=== PATIENT | male | born 1935 | race Caucasian/White ===

== ENCOUNTER 2016-08-09 19:28 | Inpatient (IN) | payer MEDICARE, OTHER ==
[~2016-08-09] VITALS: Ht 172.7 cm; Wt 82.1 kg
[2016-08-09] MEDS ORDERED: DOCU100C36 PO (19:52)
[2016-08-09] MEDS ORDERED: CLOM50CA4 PO (19:52)
[2016-08-09] MEDS ORDERED: BISA10SU12 RC (19:52)
[2016-08-09] MEDS ORDERED: CHOL100062 PO (19:52)
[2016-08-09] MEDS ORDERED: METF850T2 PO (19:52)
[2016-08-09] MEDS ORDERED: ATOR20TA PO (19:52)
[2016-08-09] MEDS ORDERED: ACET325T53 PO (19:52)
[2016-08-09] MEDS ORDERED: NA P133E RC (19:52)
[2016-08-09] MEDS ORDERED: MAGN400O6 PO (19:52)
--- NOTE | 2016-08-09 20:02 | NUR ---
Patient BIB private ambulance from [facility] for Medical Clearance and GPS admission. Patient arrives on 5150 hold. Per hold, patient has been exhibiting unpredictable and erratic behaviour such as hoarding dangerous items (a stick), patient has been having mood swings and is paranoid. Per hold, DPA states patient is "way off" from baseline behaviour. A/O x3, ambulatory, calm and cooperative. Patient to room 3A.
[2016-08-09 20:08] LABS: BASOPHILS # (AUTO) 0.1 K/uL (0.0-8.0); BASOPHILS % (AUTO) 0.7 % (0.0-2.0); EOSINOPHILS # (AUTO) 0.3 K/uL (0.0-0.7); EOSINOPHILS % (AUTO) 2.4 % (0.0-7.0); HEMOGLOBIN 11.1 G/DL (14.0-18.0); LYMPHOCYTES # (AUTO) 1.3 K/UL (0.8-4.8); LYMPHOCYTES % (AUTO) 12.1 % (20.5-51.5); MEAN CORPUSCULAR HEMOGLOBIN 28.4 UUG (27.0-31.0); MEAN CORPUSCULAR HGB CONC 33 g/dL (32.0-37.0); MEAN CORPUSCULAR VOLUME 87.3 FL (82.0-92.0); MONOCYTES # (AUTO) 0.9 K/UL (0.1-1.30); MONOCYTES % (AUTO) 8.6 % (0.0-11.0); NEUTROPHILS # (AUTO) 8.1 K/UL (1.8-8.9); NEUTROPHILS % (AUTO) 76.2 % (38.5-71.5); PLATELET COUNT (AUTO) 307 K/UL (150-450); WHITE BLOOD COUNT (AUTO) 10.7 K/UL (4.0-11.2)
[2016-08-09 20:17] LABS: CARBON DIOXIDE 29 mmol/L (21-32); CHLORIDE 101 mmol/L (98-107); GLUCOSE 113 mg/dL (74-106); POTASSIUM 3.9 mmol/L (3.5-5.1); UREA NITROGEN, BLOOD 15 mg/dL (7-18)
[2016-08-09 20:20] LABS: ETHANOL < 3 MG/DL (0-0)
[2016-08-09 20:21] LABS: *BILIRUBIN,URIN NEGATIVE (NEGATIVE); *BLOOD, URINE NEGATIVE (NEGATIVE); *CLARITY,URINE CLEAR (CLEAR); *COLOR,URINE YELLOW (YELLOW); *KETONES,URINE NEGATIVE (NEGATIVE); *PROTEIN,URINE NEGATIVE (NEGATIVE); *UROBILINOGEN,URINE 0.2 E.U./dl (NORMAL); LEUKOCYTE ESTERASE ,URINE NEGATIVE (NEGATIVE); NITRITE, URINE NEGATIVE (NEGATIVE); PH,URINE 5.5 (5.0-8.0); UGLUCOSE NEGATIVE (NEGATIVE)
[2016-08-09 20:26] LABS: RBC,URINE NONE SEEN /HPF (0-3)
[2016-08-09 20:27] LABS: BACTERIA,URINE FEW /HPF (NONE SEEN); SQUAMOUS EPITHELIAL CELL,UR NONE SEEN /HPF (NONE SEEN); WBC,URINE 0-3 /HPF (0-3)
[2016-08-09 20:33] LABS: *AMPHETAMINE, URINE NEGATIVE (NEGATIVE); *BARBITURATE, URINE NEGATIVE (NEGATIVE); *CANNABINOID, URINE NEGATIVE (NEGATIVE); *COCCAINE, URINE NEGATIVE (NEGATIVE); *OPIATE, URINE NEGATIVE (NEGATIVE); *PHENCYCLIDINE SCREEN,URINE NEGATIVE (NEGATIVE)
[2016-08-09 20:34] LABS: ALANINE AMINOTRANSFERASE 28 U/L (16-63); ALKALINE PHOSPHATASE 77 U/L (50-136); ASPARTATE AMINOTRANSFERASE 31 U/L (15-37); BILIRUBIN,DIRECT 0.1 mg/dL (0.0-0.2); BILIRUBIN,TOTAL 0.3 mg/dL (0.2-1.0); TOTAL PROTEIN, SERUM 7.2 g/dL (6.4-8.2)
[2016-08-09 20:37] LABS: ACETAMINOPHEN < 2.0 ug/mL (10-30)
[2016-08-09 20:58] LABS: THYROID STIMULATING HORMONE 1.362 mIU/mL (0.358-3.740)
--- NOTE | 2016-08-09 21:01 | NUR ---
Pt. admitted to GPS, under care of Dr. Gar Belongs List completed
[2016-08-09] MEDS ORDERED: TEMAZEPAM 7.5 MG CAPSULE PO PRN (22:45)
[2016-08-09] MEDS ORDERED: MAG HYDROX/AL HYDROX/SIMETH 30 ML LIQUID UDC PO PRN (22:45)
[2016-08-09] MEDS ORDERED: ACETAMINOPHEN 325 MG TABLET PO PRN (22:45)
[2016-08-09] MEDS ORDERED: MAGNESIUM HYDROXIDE 30 ML LIQUID UDC PO PRN (22:45)
[2016-08-09] MEDS ORDERED: LORAZEPAM 0.5 MG TABLET PO PRN (22:45)
--- NOTE | 2016-08-09 23:16 | NUR ---
Nurses notes:GPS at approx 2100, Obtained report from GELACIO Hidalgo from ER, patient will be here in MHU 10 minutes.
--- NOTE | 2016-08-09 23:19 | NUR ---
Nurses notes:GPS at approx 2125 patient was admitted to [facility]. Patient arrived via wheelchair and accompanied by ER nurse. Patient was calm and in stable condition at time of admission. Patient is on a 5150 hold d/t GD starting on 08/09/16 at 1745 and ending on 08/12/16 at 1745. Patient denied having unpredictable bx. and mood swings. MD and Psych doctors were notified of admission. we will start to monitor.
[2016-08-10 01:22] VITALS: BP 102/65
[2016-08-10 07:30] VITALS: BP 111/67
[2016-08-10] MEDS: QUETIAPINE FUMARATE 25 MG TABLET PO SCH ×2 (11:37→16:13)
--- NOTE | 2016-08-10 14:12 | NUR ---
Initial discharge instructions: The patient reside at [facility] ([facility]) [[address], [place] [address] ]. CECILY has called the facility and left a voicemail for Arlen in admissions asking if patient may return to the facility upon discharge. CECILY spoke with the patient's friend/DPOA (awaiting paperwork) who stated that he would like for the patient to return to the facility upon discharge. CECILY will speak with the patient, friend, and MD regarding most appropriate discharge plan. SS will form a safe and proper discharge.
[2016-08-10] MEDS ORDERED: FLEET ENEMA 133 ML BOTTLE RC PRN (15:15)
[2016-08-10] MEDS ORDERED: BISACODYL 10 MG SUPP.RECT RC PRN (15:15)
[2016-08-10 15:55] VITALS: BP 100/76
[2016-08-10] MEDS: DOCUSATE SODIUM 100 MG CAPSULE PO SCH (16:13)
[2016-08-10] MEDS: METFORMIN HCL 850 MG TABLET PO SCH (17:30)
[2016-08-10] MEDS: ATORVASTATIN 20 MG TABLET PO SCH (20:19)
[2016-08-10] MEDS ORDERED: CLOMIPRAMINE HCL 50 MG PO SCH (21:00)
[2016-08-10 21:10] VITALS: BP 109/61
--- NOTE | 2016-08-11 06:37 | NUR ---
NSG: REMAIN CALM AND COOPERATIVE WITH MEDS AND CARE. ASSISTED TO USE BATH ROOM. SLEPT 05:30 HRS THROUGH THE NIGHT. PLACED ON CONTACT ISOLATION FOR POSSIBLE SCABIES.CONTINUE MONITORING FOR SAFETY. DUE TO PATIENT HAS UNSTEADY GAIT.
[2016-08-11 07:30] VITALS: BP 110/59
[2016-08-11] MEDS: DOCUSATE SODIUM 100 MG CAPSULE PO SCH ×2 (08:38→17:38)
[2016-08-11] MEDS: METFORMIN HCL 850 MG TABLET PO SCH ×2 (08:38→17:45)
[2016-08-11] MEDS: QUETIAPINE FUMARATE 25 MG TABLET PO SCH ×2 (08:38→17:38)
[2016-08-11] MEDS: CHOLECALCIFEROL 1,000 UNIT TABLET PO SCH (08:38)
[2016-08-11 16:00] VITALS: BP 112/62
[2016-08-11] MEDS ORDERED: PERMETHRIN 5% CREAM 60 GM TUBE TP ONE (16:15)
[2016-08-11] MEDS: ATORVASTATIN 20 MG TABLET PO SCH (20:10)
[2016-08-11 21:32] VITALS: BP 118/66
--- NOTE | 2016-08-12 06:39 | NUR ---
GPS: REMAIN CALM AND COOPERATIVE WITH CARE. SLEPT 7 HRS THROUGH THE NIGHT.
[2016-08-12 07:30] VITALS: BP 122/52
[2016-08-12] MEDS: QUETIAPINE FUMARATE 25 MG TABLET PO SCH ×2 (08:06→16:04)
[2016-08-12] MEDS: CHOLECALCIFEROL 1,000 UNIT TABLET PO SCH (08:06)
[2016-08-12] MEDS: METFORMIN HCL 850 MG TABLET PO SCH ×2 (08:06→17:00)
[2016-08-12] MEDS: DOCUSATE SODIUM 100 MG CAPSULE PO SCH ×2 (08:06→16:04)
[2016-08-12 16:00] VITALS: BP 110/63
[2016-08-12] MEDS: ATORVASTATIN 20 MG TABLET PO SCH (20:18)
[2016-08-12 20:42] VITALS: BP 117/60
[2016-08-13 07:30] VITALS: BP 113/53
[2016-08-13] MEDS: CHOLECALCIFEROL 1,000 UNIT TABLET PO SCH (08:06)
[2016-08-13] MEDS: METFORMIN HCL 850 MG TABLET PO SCH ×2 (08:06→17:16)
[2016-08-13] MEDS: DOCUSATE SODIUM 100 MG CAPSULE PO SCH ×2 (08:06→16:17)
[2016-08-13] MEDS: QUETIAPINE FUMARATE 25 MG TABLET PO SCH ×2 (08:06→16:17)
[2016-08-13 15:26] VITALS: BP 108/61
[2016-08-13] MEDS: ATORVASTATIN 20 MG TABLET PO SCH (20:06)
[2016-08-13 20:12] VITALS: BP 117/67
--- NOTE | 2016-08-13 20:31 | NUR ---
pt received in his room sitting up, busy writing and coloring, alert, denies pain/si/hi, no distress noted, will continue to monitor closely.
[2016-08-14 07:30] VITALS: BP 119/64
[2016-08-14] MEDS: QUETIAPINE FUMARATE 25 MG TABLET PO SCH ×3 (08:21→17:40)
[2016-08-14] MEDS: CHOLECALCIFEROL 1,000 UNIT TABLET PO SCH (08:21)
[2016-08-14] MEDS: METFORMIN HCL 850 MG TABLET PO SCH ×2 (08:21→17:40)
[2016-08-14] MEDS: DOCUSATE SODIUM 100 MG CAPSULE PO SCH ×2 (08:21→17:40)
[2016-08-14 15:40] VITALS: BP 92/55
[2016-08-14 20:00] VITALS: BP 104/61
[2016-08-14] MEDS: ATORVASTATIN 20 MG TABLET PO SCH (20:16)
[2016-08-15 07:30] VITALS: BP 93/54
[2016-08-15] MEDS ORDERED: METFORMIN HCL 850 MG TABLET PO SCH (08:00)
[2016-08-15] MEDS: DOCUSATE SODIUM 100 MG CAPSULE PO SCH ×2 (09:29→18:01)
[2016-08-15] MEDS: QUETIAPINE FUMARATE 25 MG TABLET PO SCH ×3 (09:30→18:01)
[2016-08-15] MEDS: CHOLECALCIFEROL 1,000 UNIT TABLET PO SCH (09:30)
[2016-08-15] MEDS: METFORMIN HCL 500 MG TABLET PO SCH ×2 (09:31→18:01)
[2016-08-15 16:00] VITALS: BP 110/63
[2016-08-15] MEDS: ATORVASTATIN 10 MG TABLET PO SCH (20:44)
[2016-08-15 20:45] VITALS: BP 114/68
[2016-08-15] MEDS ORDERED: ATORVASTATIN 20 MG TABLET PO SCH (21:00)
--- NOTE | 2016-08-15 21:35 | NUR ---
PATIENT RECEIVED SITTING UP IN BED DRAWING. PATIENT REMAINS ON ISOLATION PRECAUTIONS DUE TO (+) SCABIES. PATIENT AWARE OF ISOLATION PRECAUTIONS IS COMPLAINT WITH TREATMENT AND REMAINS IN ROOM. PATIENT COMPLAINT WITH MEDICATION. PATIENT DENIES SI, WILL CONTINUE TO MONITOR. PATIENT ENCOURAGED TO EXPRESS FEELINGS AND CONCERNS. PATIENT IN NO APPARENT DISTRESS. NO AGGRESSIVE OR COMBATIVE BEHAVIOR NOTED WILL CONTINUE TO MONITOR. PATIENT DENIES PAIN AT THIS TIME, WILL CONTINUE TO MONITOR.
[2016-08-16 07:28] LABS: BASOPHILS # (AUTO) 0.1 K/uL (0.0-8.0); BASOPHILS % (AUTO) 1.2 % (0.0-2.0); EOSINOPHILS # (AUTO) 0.3 K/uL (0.0-0.7); EOSINOPHILS % (AUTO) 4.8 % (0.0-7.0); HEMOGLOBIN 11.2 G/DL (14.0-18.0); LYMPHOCYTES # (AUTO) 1.4 K/UL (0.8-4.8); LYMPHOCYTES % (AUTO) 20.2 % (20.5-51.5); MEAN CORPUSCULAR HGB CONC 33 g/dL (32.0-37.0); MEAN CORPUSCULAR VOLUME 87.6 FL (82.0-92.0); MONOCYTES # (AUTO) 0.8 K/UL (0.1-1.30); MONOCYTES % (AUTO) 10.9 % (0.0-11.0); NEUTROPHILS # (AUTO) 4.3 K/UL (1.8-8.9); NEUTROPHILS % (AUTO) 62.9 % (38.5-71.5); PLATELET COUNT (AUTO) 289 K/UL (150-450); RED BLOOD CELL COUNT(AUTO) 3.88 MIL/UL (4.7-6.1); WHITE BLOOD COUNT (AUTO) 6.9 K/UL (4.0-11.2)
[2016-08-16 07:30] VITALS: BP 118/67
[2016-08-16 07:46] LABS: ALANINE AMINOTRANSFERASE 19 U/L (16-63); ALKALINE PHOSPHATASE 74 U/L (50-136); ASPARTATE AMINOTRANSFERASE 17 U/L (15-37); BILIRUBIN,TOTAL 0.2 mg/dL (0.2-1.0); CARBON DIOXIDE 29 mmol/L (21-32); CHLORIDE 103 mmol/L (98-107); CREATININE 0.8 mg/dL (0.6-1.3); GLUCOSE 92 mg/dL (74-106); MAGNESIUM 1.3 mg/dL (1.8-2.4); PHOSPHOROUS 3.8 mg/dL (2.5-4.9); POTASSIUM 4.6 mmol/L (3.5-5.1); TOTAL PROTEIN, SERUM 6.7 g/dL (6.4-8.2); UREA NITROGEN, BLOOD 26 mg/dL (7-18)
[2016-08-16] MEDS: CHOLECALCIFEROL 1,000 UNIT TABLET PO SCH (08:19)
[2016-08-16] MEDS: QUETIAPINE FUMARATE 25 MG TABLET PO SCH ×2 (08:19→17:56)
[2016-08-16] MEDS: METFORMIN HCL 500 MG TABLET PO SCH ×2 (08:19→17:53)
[2016-08-16] MEDS: DOCUSATE SODIUM 100 MG CAPSULE PO SCH ×2 (08:19→17:57)
[2016-08-16 08:32] LABS: URIC ACID 5.5 mg/dL (3.5-7.2)
[2016-08-16] MEDS ORDERED: MAGNESIUM OXIDE 400 MG TABLET PO ONE (10:45)
[2016-08-16 16:03] VITALS: BP 100/60
[2016-08-16 19:30] VITALS: BP 117/67
[2016-08-16] MEDS: ATORVASTATIN 10 MG TABLET PO SCH (20:36)
[2016-08-17] MEDS: BLOOD SUGAR DIAGNOSTIC 1 EACH STRIP VI SCH (06:21)
--- NOTE | 2016-08-17 06:26 | NUR ---
NSG: REMAIN CALM AND COOPERATIVE WITH MEDS AND CARE. ASSISTED TO USE BATH ROOM. SLEPT 06:30 HRS THROUGH THE NIGHT. PATIENT IS ON CONTACT ISOLATION FOR SCABIES.CONTINUE MONITORING FOR SAFETY.
[2016-08-17 07:30] VITALS: BP_SYST 11; BP_SYST 111; BP_DIAS 70
[2016-08-17] MEDS: CHOLECALCIFEROL 1,000 UNIT TABLET PO SCH (08:27)
[2016-08-17] MEDS: METFORMIN HCL 500 MG TABLET PO SCH ×2 (08:27→17:41)
[2016-08-17] MEDS: QUETIAPINE FUMARATE 25 MG TABLET PO SCH ×3 (08:27→17:41)
[2016-08-17] MEDS: DOCUSATE SODIUM 100 MG CAPSULE PO SCH ×2 (08:27→17:41)
[2016-08-17 17:00] VITALS: BP 93/58
[2016-08-17 19:49] VITALS: BP 94/53
[2016-08-17] MEDS: ATORVASTATIN 10 MG TABLET PO SCH (20:08)
[2016-08-18] MEDS: BLOOD SUGAR DIAGNOSTIC 1 EACH STRIP VI SCH (06:49)
--- NOTE | 2016-08-18 06:52 | NUR ---
patient remain in his room during the shift. continue on isolation d/t scabies. Slept through the night for approx. 6.5hrs. patient able to used the toilet with the aid of a walker. Continue compliant with medication regiment and plan of care. No noted or reported behavioral problems during the shift. pt. remains calm and cooperative during the shift
[2016-08-18 07:47] VITALS: BP 105/58
[2016-08-18] MEDS: QUETIAPINE FUMARATE 25 MG TABLET PO SCH ×3 (08:23→18:17)
[2016-08-18] MEDS: METFORMIN HCL 500 MG TABLET PO SCH ×2 (08:23→18:18)
[2016-08-18] MEDS: DOCUSATE SODIUM 100 MG CAPSULE PO SCH ×2 (08:23→18:17)
[2016-08-18] MEDS: CHOLECALCIFEROL 1,000 UNIT TABLET PO SCH (08:23)
[2016-08-18] MEDS ORDERED: PERMETHRIN 5% CREAM 60 GM TUBE TP ONE ×2 (09:00→21:00)
[2016-08-18 20:03] VITALS: BP 105/65
[2016-08-18] MEDS: ATORVASTATIN 10 MG TABLET PO SCH (20:15)
[2016-08-19] MEDS: BLOOD SUGAR DIAGNOSTIC 1 EACH STRIP VI SCH (06:40)
--- NOTE | 2016-08-19 07:13 | NUR ---
patient slept for about 6 hrs through the night. his is calm and cooperative. compliant with medication and plan of care. Second topical treatment for scabies was applied last night. He will shower today. He will continue on isolation precautions. Pt is A/O x 3 with no changes in LOC. No delusion or AH/VH noted during the shift; however, he continues hoarding papers, cup, verbal redirection given, yet ineffective. we will continue to monitor.
[2016-08-19 07:30] VITALS: BP 100/58
[2016-08-19 08:07] LABS: BASOPHILS # (AUTO) 0.1 K/uL (0.0-8.0); EOSINOPHILS # (AUTO) 0.3 K/uL (0.0-0.7); EOSINOPHILS % (AUTO) 3.9 % (0.0-7.0); HEMATOCRIT 36.1 % (40-50); HEMOGLOBIN 11.9 G/DL (14.0-18.0); LYMPHOCYTES # (AUTO) 1.3 K/UL (0.8-4.8); LYMPHOCYTES % (AUTO) 18.5 % (20.5-51.5); MEAN CORPUSCULAR HGB CONC 33 g/dL (32.0-37.0); MEAN CORPUSCULAR VOLUME 87.8 FL (82.0-92.0); MONOCYTES # (AUTO) 0.6 K/UL (0.1-1.30); MONOCYTES % (AUTO) 7.8 % (0.0-11.0); NEUTROPHILS % (AUTO) 68.8 % (38.5-71.5); PLATELET COUNT (AUTO) 328 K/UL (150-450); RED BLOOD CELL COUNT(AUTO) 4.11 MIL/UL (4.7-6.1); WHITE BLOOD COUNT (AUTO) 7.3 K/UL (4.0-11.2)
[2016-08-19] MEDS: METFORMIN HCL 500 MG TABLET PO SCH ×2 (08:19→17:21)
[2016-08-19] MEDS: DOCUSATE SODIUM 100 MG CAPSULE PO SCH ×2 (08:21→17:21)
[2016-08-19] MEDS: CHOLECALCIFEROL 1,000 UNIT TABLET PO SCH (08:21)
[2016-08-19] MEDS: QUETIAPINE FUMARATE 25 MG TABLET PO SCH ×3 (08:22→17:22)
[2016-08-19 08:29] LABS: ALANINE AMINOTRANSFERASE 22 U/L (16-63); ALKALINE PHOSPHATASE 83 U/L (50-136); ASPARTATE AMINOTRANSFERASE 16 U/L (15-37); BILIRUBIN,TOTAL 0.2 mg/dL (0.2-1.0); CARBON DIOXIDE 29 mmol/L (21-32); CHLORIDE 104 mmol/L (98-107); CREATININE 0.9 mg/dL (0.6-1.3); GLUCOSE 127 mg/dL (74-106); MAGNESIUM 1.4 mg/dL (1.8-2.4); PHOSPHOROUS 4.2 mg/dL (2.5-4.9); POTASSIUM 4.4 mmol/L (3.5-5.1); TOTAL PROTEIN, SERUM 7.2 g/dL (6.4-8.2); UREA NITROGEN, BLOOD 23 mg/dL (7-18)
[2016-08-19] MEDS ORDERED: MAGNESIUM OXIDE 400 MG TABLET PO ONE (09:15)
[2016-08-19 15:39] VITALS: BP 99/64
[2016-08-19 20:00] VITALS: BP 118/65
[2016-08-19] MEDS: ATORVASTATIN 10 MG TABLET PO SCH (20:02)
--- NOTE | 2016-08-20 03:36 | NUR ---
PATIENT IN HIS ROOM. CONTINUE ON ISOLATION CONTACT PRECAUTION R/T SCABIES. PATIENT IS COMPLIANT WITH MEDICATION REGIMENT, DIET AND PLAN OF CARE. HE IS CALM AND COOPERATIVE. NO BEHAVIOR PROBLEMS NOTED OR REPORTED DURING THE SHIFT. NO SI/HI, NO AH/VH NOTED; HOWEVER, PATIENT CONTINUE HOARDING PAPER TOWELS, AND CUPS IN HIS ROOM. PATIENT IS EASILY REDIRECTABLE. HE IS A/O X 3 WITH NO CHANGES IN LOC. ABLE TO MAKE HIS NEEDS KNOW. WE WILL CONTINUE TO MONITOR
[2016-08-20] MEDS: BLOOD SUGAR DIAGNOSTIC 1 EACH STRIP VI SCH (06:26)
[2016-08-20 07:30] VITALS: BP 112/64
[2016-08-20] MEDS: QUETIAPINE FUMARATE 25 MG TABLET PO SCH ×3 (08:15→17:25)
[2016-08-20] MEDS: DOCUSATE SODIUM 100 MG CAPSULE PO SCH ×2 (08:15→17:25)
[2016-08-20] MEDS: CHOLECALCIFEROL 1,000 UNIT TABLET PO SCH (08:15)
[2016-08-20] MEDS: METFORMIN HCL 500 MG TABLET PO SCH ×2 (08:15→17:25)
[2016-08-20 16:44] VITALS: BP 106/52
[2016-08-20 20:46] VITALS: BP 101/59
[2016-08-20] MEDS: ATORVASTATIN 10 MG TABLET PO SCH (20:57)
--- NOTE | 2016-08-20 22:00 | NUR ---
received to care, no longer on isolation. remain pleasant, but isolative. no interactions with peers, but is able to verbalize all needs. compliant with medications, and staff direction. fluids and bedtime snack were given. as of 2200, he appears to be asleep. no distress noted. will continue to monitor closely.
--- NOTE | 2016-08-21 06:15 | NUR ---
slept 8 hours, total. is now awake. assisted with AM care, and shower. currently sitting at his bedside. no distress noted. will continue to monitor closely.
[2016-08-21] MEDS: BLOOD SUGAR DIAGNOSTIC 1 EACH STRIP VI SCH (06:23)
[2016-08-21 07:48] VITALS: BP 108/66
[2016-08-21] MEDS: QUETIAPINE FUMARATE 25 MG TABLET PO SCH (08:14)
[2016-08-21] MEDS: METFORMIN HCL 500 MG TABLET PO SCH (08:14)
[2016-08-21] MEDS: DOCUSATE SODIUM 100 MG CAPSULE PO SCH (08:14)
[2016-08-21] MEDS: CHOLECALCIFEROL 1,000 UNIT TABLET PO SCH (08:14)
--- NOTE | 2016-08-21 08:59 | NUR ---
DC Note: The patient will be discharged today back to [facility] ([facility]) [[address], [place] [address] ] via ambulance. CECILY spoke with TUCKER Tariq at the facility who stated that they will accept the patient back today. CECILY spoke with the patient's friend/DPTAMARA Tani Rose and he is aware and agreeable with the discharge plan. The patient will follow-up at the facility with operator Dr. Lott and psychiatrist Dr. Pantjoa.
--- NOTE | 2016-08-21 11:30 | NUR ---
GPS/RN- DISCHARGE NOTE Patient is alert and oriented to person place and situation,compliant with care and meds,redirected on hoarding. patient calm and pleasant, no agitated behavior, no delusions no hallucinations, remains guarded and anxious, redirectable. denies any SI/HI The patient will be discharged today back to [facility] ([facility]) [[address] , [place] [address] ] via ambulance. The patient will follow-up at the facility with shed workers supervisor Dr. Lott and psychiatrist Dr. Pantoja. Belongings returned and accounted for.
== END 2016-08-21 12:00 | DRG 885 ==
LOC: ER 19:32 → GPS 20:58
PROVIDERS: ADMIT Psychiatry & Neurology Psychosomatic Medicine; ATTEND Contractor
DX: F25.1 Schizoaffective disorder, depressive type (principal); E11.65 Type 2 diabetes mellitus with hyperglycemia; E78.5 Hyperlipidemia, unspecified; F03.90 Unspecified dementia, unspecified severity, without behavioral disturbance, psychotic disturbance, mood disturbance, and anxiety; B86 Scabies; D64.9 Anemia, unspecified; E88.09 Other disorders of plasma-protein metabolism, not elsewhere classified; M19.042 Primary osteoarthritis, left hand; E83.42 Hypomagnesemia; Z79.899 Other long term (current) drug therapy; Z79.4 Long term (current) use of insulin; I70.0 Atherosclerosis of aorta; F41.9 Anxiety disorder, unspecified
CPT/HCPCS: 36415; 70030-TC; 70450; 71010; 73120; 80307; 83605; 83735; 84100; 84443; 84550; 85025; 85730; 87040; 87086; 93005; 97161; A4663; G0480; G0480-TC

== ENCOUNTER 2018-01-06 12:38 | Inpatient (IN) | payer MEDICARE, OTHER ==
[~2018-01-06] VITALS: Ht 160 cm; Wt 82.6 kg
[~2018-01-06 12:38] MED LIST: ACET325T53 PO; ATOR20TA PO; BISA10SU12 RC; CHOL100062 PO; DOCU100C36 PO; MAGN400O6 PO; METF-441 PO; NA P133E RC
[2018-01-06] MEDS ORDERED: predniSONE 20 MG TABLET PO ONE (13:15)
[2018-01-06] MEDS ORDERED: ACET325C3 PO (13:24)
[2018-01-06] MEDS ORDERED: BISA10SU61 RC (13:24)
[2018-01-06] MEDS ORDERED: CHOL100062 PO (13:24)
[2018-01-06] MEDS ORDERED: BENA5TAB5 PO (13:24)
[2018-01-06] MEDS ORDERED: MAG355OR18 PO (13:24)
[2018-01-06] MEDS ORDERED: ATOR10TA PO (13:24)
[2018-01-06] MEDS ORDERED: QUET25TA PO (13:24)
[2018-01-06] MEDS ORDERED: SENN-18 PO (13:24)
[2018-01-06] MEDS ORDERED: QUET50TA PO (13:24)
[2018-01-06] MEDS ORDERED: RANI150T43 PO (13:24)
[2018-01-06] MEDS ORDERED: MAGN400O6 PO (13:24)
[2018-01-06] MEDS ORDERED: ACET325T53 PO (13:24)
[2018-01-06] MEDS ORDERED: METF-440 PO (13:24)
[2018-01-06] MEDS ORDERED: CRAN425C6 PO (13:24)
[2018-01-06] MEDS ORDERED: NA P133E RC (13:24)
[2018-01-06 13:43] LABS: CARBON DIOXIDE 28 mmol/L (21-32); CHLORIDE 102 mmol/L (98-107); CREATININE 0.8 mg/dL (0.6-1.3); GLUCOSE 116 mg/dL (74-106); UREA NITROGEN, BLOOD 15 mg/dL (7-18)
[2018-01-06 13:48] LABS: BASOPHILS # (AUTO) 0.1 K/uL (0.0-8.0); BASOPHILS % (AUTO) 1.2 % (0.0-2.0); EOSINOPHILS # (AUTO) 0.1 K/uL (0.0-0.7); EOSINOPHILS % (AUTO) 1.6 % (0.0-7.0); HEMATOCRIT 37.6 % (36.7-47.1); HEMOGLOBIN 12.9 g/dL (12.5-16.3); LYMPHOCYTES # (AUTO) 1.1 K/uL (20.0-40.0); LYMPHOCYTES % (AUTO) 14.8 % (20.5-51.5); MEAN CORPUSCULAR HEMOGLOBIN 31.4 uug (23.8-33.4); MEAN CORPUSCULAR HGB CONC 34 g/dL (32.5-36.3); MEAN CORPUSCULAR VOLUME 91.6 fL (73.0-96.2); MONOCYTES # (AUTO) 0.5 K/uL (2.0-10.0); MONOCYTES % (AUTO) 6.6 % (0.0-11.0); NEUTROPHILS # (AUTO) 5.7 K/uL (1.8-8.9); NEUTROPHILS % (AUTO) 75.8 % (38.5-71.5); PLATELET COUNT (AUTO) 278 K/uL (152-348); WHITE BLOOD COUNT (AUTO) 7.5 K/uL (3.6-10.2)
[2018-01-06 13:49] LABS: ALANINE AMINOTRANSFERASE 26 U/L (16-63); ALKALINE PHOSPHATASE 116 U/L (50-136); ASPARTATE AMINOTRANSFERASE 20 U/L (15-37); BILIRUBIN,DIRECT 0.1 mg/dL (0.0-0.2); BILIRUBIN,TOTAL 0.4 mg/dL (0.2-1.0); TOTAL PROTEIN, SERUM 7.5 g/dL (6.4-8.2)
[2018-01-06 13:51] LABS: ACETAMINOPHEN < 2.0 ug/mL (10-30); ETHANOL < 3 MG/DL (0-0)
[2018-01-06] MEDS ORDERED: MAGNESIUM HYDROXIDE 30 ML LIQUID UDC PO PRN (15:30)
[2018-01-06] MEDS ORDERED: ACETAMINOPHEN 325 MG TABLET PO PRN ×2 (15:30→17:30)
[2018-01-06] MEDS ORDERED: MAG HYDROX/AL HYDROX/SIMETH 30 ML LIQUID UDC PO PRN (15:30)
[2018-01-06] MEDS ORDERED: LORAZEPAM 0.5 MG TABLET PO PRN (16:00)
[2018-01-06 19:52] VITALS: BP 111/55
[2018-01-06] MEDS: ATORVASTATIN 10 MG TABLET PO SCH (20:07)
[2018-01-06] MEDS: DIVALPROEX 250 MG TABLET.DR PO SCH (20:07)
[2018-01-06] MEDS: QUETIAPINE FUMARATE 25 MG TABLET PO SCH (20:07)
[2018-01-06] MEDS ORDERED: TEMAZEPAM 7.5 MG CAPSULE PO SCH (21:00)
[2018-01-06] MEDS ORDERED: TEMAZEPAM 7.5 MG CAPSULE PO PRN (21:00)
[2018-01-06] MEDS: BENAZEPRIL HCL 5 MG TABLET PO SCH (21:00)
[2018-01-07 07:30] VITALS: BP 117/66
[2018-01-07] MEDS: METFORMIN HCL 500 MG TABLET PO SCH ×3 (08:02→17:04)
[2018-01-07] MEDS: DIVALPROEX 250 MG TABLET.DR PO SCH ×2 (08:27→16:38)
[2018-01-07] MEDS: QUETIAPINE FUMARATE 25 MG TABLET PO SCH ×2 (08:27→21:12)
[2018-01-07] MEDS: DOCUSATE SODIUM 100 MG CAPSULE PO SCH ×2 (08:33→16:38)
[2018-01-07 16:41] VITALS: BP 124/62
[2018-01-07 20:09] VITALS: BP 123/69
[2018-01-07] MEDS: BENAZEPRIL HCL 5 MG TABLET PO SCH (21:12)
[2018-01-07] MEDS: ATORVASTATIN 10 MG TABLET PO SCH (21:12)
[2018-01-08 07:30] VITALS: BP 113/67
[2018-01-08] MEDS: DIVALPROEX 250 MG TABLET.DR PO SCH ×2 (08:14→16:26)
[2018-01-08] MEDS: METFORMIN HCL 500 MG TABLET PO SCH ×3 (08:14→17:04)
[2018-01-08] MEDS: QUETIAPINE FUMARATE 25 MG TABLET PO SCH ×2 (08:14→20:06)
[2018-01-08] MEDS: DOCUSATE SODIUM 100 MG CAPSULE PO SCH ×2 (08:14→16:26)
[2018-01-08 16:10] VITALS: BP 104/64
[2018-01-08 19:55] VITALS: BP 115/62
[2018-01-08] MEDS: ATORVASTATIN 10 MG TABLET PO SCH (20:06)
[2018-01-08] MEDS: BENAZEPRIL HCL 5 MG TABLET PO SCH (20:07)
[2018-01-09 07:30] VITALS: BP 117/63
[2018-01-09] MEDS: METFORMIN HCL 500 MG TABLET PO SCH ×3 (08:05→17:22)
[2018-01-09] MEDS: DOCUSATE SODIUM 100 MG CAPSULE PO SCH ×2 (08:06→17:22)
[2018-01-09] MEDS: QUETIAPINE FUMARATE 25 MG TABLET PO SCH ×2 (08:06→20:17)
[2018-01-09] MEDS: DIVALPROEX 250 MG TABLET.DR PO SCH ×2 (08:06→17:22)
[2018-01-09 16:00] VITALS: BP 122/80
[2018-01-09] MEDS: ATORVASTATIN 10 MG TABLET PO SCH (20:16)
[2018-01-09] MEDS: BENAZEPRIL HCL 5 MG TABLET PO SCH (20:17)
[2018-01-09 20:30] VITALS: BP 133/73
[2018-01-10 07:30] VITALS: BP 137/62
[2018-01-10] MEDS: DIVALPROEX 250 MG TABLET.DR PO SCH ×2 (08:26→17:34)
[2018-01-10] MEDS: QUETIAPINE FUMARATE 25 MG TABLET PO SCH ×2 (08:26→17:34)
[2018-01-10] MEDS: DOCUSATE SODIUM 100 MG CAPSULE PO SCH ×2 (08:26→17:34)
[2018-01-10] MEDS: METFORMIN HCL 500 MG TABLET PO SCH ×3 (08:26→17:34)
[2018-01-10 16:00] VITALS: BP 113/63
[2018-01-10] MEDS: ATORVASTATIN 10 MG TABLET PO SCH (20:24)
[2018-01-10] MEDS: BENAZEPRIL HCL 5 MG TABLET PO SCH (20:25)
[2018-01-10 20:28] VITALS: BP 114/63
[2018-01-11 07:30] VITALS: BP 129/68
[2018-01-11] MEDS: DOCUSATE SODIUM 100 MG CAPSULE PO SCH ×2 (08:35→16:30)
[2018-01-11] MEDS: DIVALPROEX 250 MG TABLET.DR PO SCH ×2 (08:35→16:30)
[2018-01-11] MEDS: QUETIAPINE FUMARATE 25 MG TABLET PO SCH ×2 (08:35→16:31)
[2018-01-11] MEDS: METFORMIN HCL 500 MG TABLET PO SCH ×3 (08:35→17:05)
[2018-01-11 16:15] VITALS: BP 132/64
[2018-01-11 20:15] VITALS: BP 116/69
[2018-01-11] MEDS: ATORVASTATIN 10 MG TABLET PO SCH (20:51)
[2018-01-11] MEDS: BENAZEPRIL HCL 5 MG TABLET PO SCH (20:52)
[2018-01-12 07:30] VITALS: BP 139/67
[2018-01-12] MEDS: DIVALPROEX 250 MG TABLET.DR PO SCH ×2 (08:35→17:27)
[2018-01-12] MEDS: DOCUSATE SODIUM 100 MG CAPSULE PO SCH ×2 (08:35→17:26)
[2018-01-12] MEDS: METFORMIN HCL 500 MG TABLET PO SCH ×3 (08:35→17:27)
[2018-01-12] MEDS: QUETIAPINE FUMARATE 25 MG TABLET PO SCH ×2 (08:35→17:27)
[2018-01-12 16:00] VITALS: BP 114/55
[2018-01-12 20:00] VITALS: BP 123/61
[2018-01-12] MEDS: ATORVASTATIN 10 MG TABLET PO SCH (20:10)
[2018-01-12] MEDS: BENAZEPRIL HCL 5 MG TABLET PO SCH (20:10)
[2018-01-13 07:30] VITALS: BP 115/65
[2018-01-13 08:03] LABS: BASOPHILS # (AUTO) 0.1 K/uL (0.0-8.0); EOSINOPHILS # (AUTO) 0.2 K/uL (0.0-0.7); EOSINOPHILS % (AUTO) 2.7 % (0.0-7.0); HEMATOCRIT 34.7 % (36.7-47.1); LYMPHOCYTES # (AUTO) 1.8 K/uL (20.0-40.0); LYMPHOCYTES % (AUTO) 22.5 % (20.5-51.5); MEAN CORPUSCULAR HEMOGLOBIN 31.8 uug (23.8-33.4); MEAN CORPUSCULAR HGB CONC 35 g/dL (32.5-36.3); MEAN CORPUSCULAR VOLUME 91.7 fL (73.0-96.2); MONOCYTES # (AUTO) 0.6 K/uL (2.0-10.0); MONOCYTES % (AUTO) 7.9 % (0.0-11.0); NEUTROPHILS # (AUTO) 5.2 K/uL (1.8-8.9); NEUTROPHILS % (AUTO) 65.9 % (38.5-71.5); PLATELET COUNT (AUTO) 275 K/uL (152-348); RED BLOOD CELL COUNT(AUTO) 3.79 MIL/uL (4.06-5.63); WHITE BLOOD COUNT (AUTO) 7.9 K/uL (3.6-10.2)
[2018-01-13] MEDS: DIVALPROEX 250 MG TABLET.DR PO SCH ×2 (08:11→16:37)
[2018-01-13] MEDS: DOCUSATE SODIUM 100 MG CAPSULE PO SCH ×2 (08:11→16:37)
[2018-01-13] MEDS: QUETIAPINE FUMARATE 25 MG TABLET PO SCH ×2 (08:11→16:37)
[2018-01-13] MEDS: METFORMIN HCL 500 MG TABLET PO SCH ×3 (08:11→17:23)
[2018-01-13 08:20] LABS: CARBON DIOXIDE 30 mmol/L (21-32); CHLORIDE 105 mmol/L (98-107); CREATININE 0.7 mg/dL (0.6-1.3); GLUCOSE 89 mg/dL (74-106); MAGNESIUM 1.4 mg/dL (1.8-2.4); PHOSPHOROUS 2.7 mg/dL (2.5-4.9); UREA NITROGEN, BLOOD 19 mg/dL (7-18)
[2018-01-13] MEDS ORDERED: MAGNESIUM OXIDE 400 MG TABLET PO ONE ×2 (14:00→16:45)
[2018-01-13 15:04] VITALS: BP 130/67
[2018-01-13] MEDS: BENAZEPRIL HCL 5 MG TABLET PO SCH (20:19)
[2018-01-13] MEDS: ATORVASTATIN 10 MG TABLET PO SCH (20:19)
[2018-01-13 20:44] VITALS: BP 105/55
[2018-01-14 07:30] VITALS: BP 119/69
[2018-01-14] MEDS: DOCUSATE SODIUM 100 MG CAPSULE PO SCH ×2 (08:21→17:10)
[2018-01-14] MEDS: METFORMIN HCL 500 MG TABLET PO SCH ×3 (08:21→17:10)
[2018-01-14] MEDS: QUETIAPINE FUMARATE 25 MG TABLET PO SCH ×2 (08:21→17:10)
[2018-01-14] MEDS: DIVALPROEX 250 MG TABLET.DR PO SCH ×2 (08:21→17:09)
[2018-01-14 16:00] VITALS: BP 121/72
[2018-01-14 17:58] LABS: *BILIRUBIN,URIN NEGATIVE (NEGATIVE); *BLOOD, URINE NEGATIVE (NEGATIVE); *CLARITY,URINE CLEAR (CLEAR); *COLOR,URINE YELLOW (YELLOW); *KETONES,URINE 1+ (NEGATIVE); *PROTEIN,URINE NEGATIVE (NEGATIVE); LEUKOCYTE ESTERASE ,URINE NEGATIVE (NEGATIVE); NITRITE, URINE NEGATIVE (NEGATIVE); UGLUCOSE NEGATIVE (NEGATIVE)
[2018-01-14 18:02] LABS: *AMPHETAMINE, URINE NEGATIVE (NEGATIVE); *BARBITURATE, URINE NEGATIVE (NEGATIVE); *CANNABINOID, URINE NEGATIVE (NEGATIVE); *COCCAINE, URINE NEGATIVE (NEGATIVE); *OPIATE, URINE NEGATIVE (NEGATIVE); *PHENCYCLIDINE SCREEN,URINE NEGATIVE (NEGATIVE)
[2018-01-14 18:44] LABS: MUCUS,URINE FEW /LPF (0-FEW); SQUAMOUS EPITHELIAL CELL,UR FEW /HPF (NONE SEEN); WBC,URINE NONE SEEN /HPF (0-3)
[2018-01-14 20:00] VITALS: BP 103/56
[2018-01-14] MEDS: ATORVASTATIN 10 MG TABLET PO SCH (20:02)
[2018-01-14] MEDS: BENAZEPRIL HCL 5 MG TABLET PO SCH (20:04)
[2018-01-15 07:30] VITALS: BP_SYST 122; BP_SYST 123; BP_DIAS 48; BP_DIAS 74
[2018-01-15] MEDS: DOCUSATE SODIUM 100 MG CAPSULE PO SCH (08:37)
[2018-01-15] MEDS: DIVALPROEX 250 MG TABLET.DR PO SCH (08:37)
[2018-01-15] MEDS: METFORMIN HCL 500 MG TABLET PO SCH (08:37)
[2018-01-15] MEDS: QUETIAPINE FUMARATE 25 MG TABLET PO SCH (08:37)
== END 2018-01-15 12:10 | DRG 885 ==
LOC: ER 12:38 → GPS 14:34
PROVIDERS: ADMIT Psychiatry & Neurology Psychiatry; ATTEND Internal Medicine
DX: F29 Unspecified psychosis not due to a substance or known physiological condition (principal); E78.5 Hyperlipidemia, unspecified; E11.9 Type 2 diabetes mellitus without complications; F41.9 Anxiety disorder, unspecified; E66.9 Obesity, unspecified; E83.42 Hypomagnesemia; I10 Essential (primary) hypertension; D64.9 Anemia, unspecified; Z79.899 Other long term (current) drug therapy; Z79.84 Long term (current) use of oral hypoglycemic drugs; Z68.33 Body mass index [BMI] 33.0-33.9, adult; Z71.3 Dietary counseling and surveillance; F03.90 Unspecified dementia, unspecified severity, without behavioral disturbance, psychotic disturbance, mood disturbance, and anxiety; F32.9 Major depressive disorder, single episode, unspecified
CPT/HCPCS: 36415; 80307; 83735; 84100; 85025; 97116; 97530; A4663; G0480; G0480-TC; J3490

== ENCOUNTER 2018-06-14 22:42 | Inpatient (IN) | payer MEDICARE, MEDICAID ==
[~2018-06-14] VITALS: Ht 172.7 cm; Wt 77.1 kg
[~2018-06-14 22:42] MED LIST changes: +ACET325C3 PO; +ATOR10TA PO; -ATOR20TA PO; +BENA5TAB5 PO; -BISA10SU12 RC; +BISA10SU61 RC; +CRAN425C6 PO; +MAG355OR18 PO; +METF-440 PO; -METF-441 PO; +QUET25TA PO; +QUET50TA PO; +RANI150T43 PO; +SENN-18 PO
--- NOTE | 2018-06-14 22:51 | NUR ---
Called [employer] for sitter, no sitter available at this time.
--- NOTE | 2018-06-14 22:55 | NUR ---
Dr. Hoover at bedside for MSE.
--- NOTE | 2018-06-14 22:59 | NUR ---
Xray at bedside.
[2018-06-14 23:20] LABS: BASOPHILS # (AUTO) 0.1 K/uL (0.0-8.0); BASOPHILS % (AUTO) 1.1 % (0.0-2.0); EOSINOPHILS # (AUTO) 0.3 K/uL (0.0-0.7); EOSINOPHILS % (AUTO) 4.5 % (0.0-7.0); HEMOGLOBIN 12.6 g/dL (12.5-16.3); LYMPHOCYTES # (AUTO) 2.1 K/uL (20.0-40.0); LYMPHOCYTES % (AUTO) 31.4 % (20.5-51.5); MEAN CORPUSCULAR HEMOGLOBIN 31.5 uug (23.8-33.4); MEAN CORPUSCULAR HGB CONC 34 g/dL (32.5-36.3); MEAN CORPUSCULAR VOLUME 92.3 fL (73.0-96.2); MONOCYTES # (AUTO) 0.6 K/uL (2.0-10.0); MONOCYTES % (AUTO) 8.4 % (0.0-11.0); NEUTROPHILS # (AUTO) 3.7 K/uL (1.8-8.9); NEUTROPHILS % (AUTO) 54.6 % (38.5-71.5); PLATELET COUNT (AUTO) 286 K/uL (152-348); RED BLOOD CELL COUNT(AUTO) 4.01 MIL/uL (4.06-5.63); WHITE BLOOD COUNT (AUTO) 6.8 K/uL (3.6-10.2)
[2018-06-14 23:30] LABS: CARBON DIOXIDE 30 mmol/L (21-32); CHLORIDE 104 mmol/L (98-107); CREATININE 0.7 mg/dL (0.6-1.3); GLUCOSE 80 mg/dL (74-106); POTASSIUM 4.2 mmol/L (3.5-5.1); UREA NITROGEN, BLOOD 6 mg/dL (7-18)
--- NOTE | 2018-06-14 23:32 | NUR ---
Pt provided urine sample, sent to lab.
[2018-06-14 23:34] LABS: ETHANOL < 3 MG/DL (0-0)
[2018-06-14 23:38] LABS: *BILIRUBIN,URIN NEGATIVE (NEGATIVE); *BLOOD, URINE NEGATIVE (NEGATIVE); *CLARITY,URINE CLEAR (CLEAR); *COLOR,URINE YELLOW (YELLOW); *KETONES,URINE NEGATIVE (NEGATIVE); *UROBILINOGEN,URINE 0.2 E.U./dl (NORMAL); LEUKOCYTE ESTERASE ,URINE NEGATIVE (NEGATIVE); NITRITE, URINE NEGATIVE (NEGATIVE); PH,URINE 6.5 (5.0-8.0); UGLUCOSE NEGATIVE (NEGATIVE)
[2018-06-14 23:38] LABS: ALANINE AMINOTRANSFERASE 25 U/L (16-63); ALKALINE PHOSPHATASE 88 U/L (50-136); ASPARTATE AMINOTRANSFERASE 17 U/L (15-37); BILIRUBIN,DIRECT 0.1 mg/dL (0.0-0.2); BILIRUBIN,TOTAL 0.4 mg/dL (0.2-1.0); TOTAL PROTEIN, SERUM 7.2 g/dL (6.4-8.2); VALPROIC ACID 48 ug/mL (50-100)
[2018-06-14 23:44] LABS: THYROID STIMULATING HORMONE 2.686 mIU/mL (0.358-3.740)
[2018-06-14 23:44] LABS: BACTERIA,URINE NONE SEEN /HPF (NONE SEEN); RBC,URINE 0-3 /HPF (0-3); SQUAMOUS EPITHELIAL CELL,UR FEW /HPF (NONE SEEN); WBC,URINE 0-3 /HPF (0-3)
--- NOTE | 2018-06-14 23:52 | NUR ---
Pt wanded by security and searched for contraband.
[2018-06-14 23:54] LABS: *AMPHETAMINE, URINE NEGATIVE (NEGATIVE); *BARBITURATE, URINE NEGATIVE (NEGATIVE); *CANNABINOID, URINE NEGATIVE (NEGATIVE); *COCCAINE, URINE NEGATIVE (NEGATIVE); *OPIATE, URINE NEGATIVE (NEGATIVE); *PHENCYCLIDINE SCREEN,URINE NEGATIVE (NEGATIVE)
--- NOTE | 2018-06-15 00:05 | NUR ---
Pt medically cleared by Dr. Hoover.
--- NOTE | 2018-06-15 00:12 | NUR ---
Report given to Vida BRIZUELA MHU.
[2018-06-15 00:30] VITALS: BP 147/80
[2018-06-15] MEDS ORDERED: MAG HYDROX/AL HYDROX/SIMETH 30 ML LIQUID UDC PO PRN ×2 (00:45→07:15)
[2018-06-15] MEDS ORDERED: TEMAZEPAM 7.5 MG CAPSULE PO PRN (00:45)
[2018-06-15] MEDS ORDERED: LORAZEPAM 0.5 MG TABLET PO PRN (00:45)
[2018-06-15] MEDS ORDERED: ACETAMINOPHEN 325 MG TABLET PO PRN ×2 (00:45→07:15)
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
[2018-06-15] MEDS ORDERED: MAGNESIUM HYDROXIDE 30 ML LIQUID UDC PO PRN (07:15)
[2018-06-15] MEDS ORDERED: BISACODYL 10 MG SUPP.RECT RC PRN (07:15)
[2018-06-15] MEDS ORDERED: FLEET ENEMA 133 ML BOTTLE RC PRN (07:15)
[2018-06-15 07:30] VITALS: BP 134/66
[2018-06-15] MEDS: SENNOSIDES 1 TABLET PO SCH (08:36)
[2018-06-15] MEDS: DOCUSATE SODIUM 100 MG CAPSULE PO SCH ×2 (08:37→16:59)
[2018-06-15] MEDS: CHOLECALCIFEROL 1,000 UNIT TABLET PO SCH (08:37)
[2018-06-15] MEDS: METFORMIN HCL 500 MG TABLET PO SCH ×3 (08:37→16:59)
[2018-06-15 16:00] VITALS: BP 121/64
[2018-06-15] MEDS: DIVALPROEX SPRINKLE 125 MG CAP.SPRINK PO SCH (17:00)
[2018-06-15 20:09] VITALS: BP 135/71
[2018-06-15] MEDS: BENAZEPRIL HCL 5 MG TABLET PO SCH (20:25)
[2018-06-15] MEDS: ATORVASTATIN 10 MG TABLET PO SCH (20:26)
[2018-06-15] MEDS ORDERED: QUETIAPINE FUMARATE 25 MG TABLET PO SCH (21:00)
[2018-06-16] MEDS: PANTOPRAZOLE SODIUM 40 MG TABLET.DR PO SCH (06:22)
[2018-06-16 07:30] VITALS: BP 116/59
[2018-06-16] MEDS: METFORMIN HCL 500 MG TABLET PO SCH ×3 (08:54→16:27)
[2018-06-16] MEDS: DIVALPROEX SPRINKLE 125 MG CAP.SPRINK PO SCH ×2 (08:54→16:27)
[2018-06-16] MEDS: CHOLECALCIFEROL 1,000 UNIT TABLET PO SCH (08:54)
[2018-06-16] MEDS: SENNOSIDES 1 TABLET PO SCH (08:54)
[2018-06-16] MEDS: DOCUSATE SODIUM 100 MG CAPSULE PO SCH ×2 (08:54→16:27)
[2018-06-16] MEDS ORDERED: QUETIAPINE FUMARATE 25 MG TABLET PO SCH (09:00)
--- NOTE | 2018-06-16 14:56 | NUR ---
Initial Discharge Note: Pt is a 82 year old male who currently is a resident at [facility] Address: [address] [place] [address] . Per pt he would like to return to his facility. production staff worker spoke with pt JOAQUIN, joaquin agrees if pt is requesting to return to facility he is agreeable with that. Pts JOAQUIN stated if possible to d/c pt to [facility] it would be better due to distance from his home, however if pt does not want [facility] and chooses [place] JOAQUIN is agreeable to that placement as well. production staff worker will continue to collaborate with pt, JOAQUIN and on a safe and proper discharge.
--- NOTE | 2018-06-16 16:29 | NUR ---
Firearms Report: CECILY completed and submitted [employer] Firearms Report for 5150 DTO/GD certifications.
[2018-06-16 16:38] VITALS: BP 115/58
--- NOTE | 2018-06-16 17:58 | NUR ---
PATIENT RECEIVED ON BED, DENIES PAIN,NO SOB, PATIENT COMPLIANT WITH MEDICATION, DENIES SI AND HI WILL CONTINUE MONITOR
[2018-06-16 20:06] VITALS: BP 122/71
[2018-06-16] MEDS: QUETIAPINE FUMARATE 25 MG TABLET PO SCH (20:18)
[2018-06-16] MEDS: BENAZEPRIL HCL 5 MG TABLET PO SCH (20:18)
[2018-06-16] MEDS: ATORVASTATIN 10 MG TABLET PO SCH (20:18)
[2018-06-17] MEDS: PANTOPRAZOLE SODIUM 40 MG TABLET.DR PO SCH (06:10)
[2018-06-17 07:39] VITALS: BP 92/53
[2018-06-17] MEDS: METFORMIN HCL 500 MG TABLET PO SCH ×3 (07:53→16:02)
[2018-06-17] MEDS: DIVALPROEX SPRINKLE 125 MG CAP.SPRINK PO SCH ×2 (08:00→16:02)
[2018-06-17] MEDS: CHOLECALCIFEROL 1,000 UNIT TABLET PO SCH (08:00)
[2018-06-17] MEDS: QUETIAPINE FUMARATE 25 MG TABLET PO SCH ×2 (08:00→20:05)
[2018-06-17] MEDS: DOCUSATE SODIUM 100 MG CAPSULE PO SCH ×2 (08:00→16:02)
[2018-06-17] MEDS: SENNOSIDES 1 TABLET PO SCH (08:00)
--- NOTE | 2018-06-17 16:16 | NUR ---
GPS: RECEIVED PATIENT AWAKE ON BED, COMPLIANT WITH DIET AND MEDICATION, REMAINS ISOLATIVE AND STAYS IN HIS ROOM, SEEN AND EXAMINED BY REHAB WITH GAIT AND THERA EX ORDER DONE, PATIENT KEPT BUSY WITH MATHEMATIC EQUATIONS , PATIENT DENIES SI AND HI AT THIS TIME,FALL PRECAUTION OBSERVED THROUGH OUT THE SHIFT, WILL CONTINUE MONITOR
[2018-06-17 16:51] VITALS: BP 114/63
[2018-06-17 20:00] VITALS: BP 117/63
[2018-06-17] MEDS: BENAZEPRIL HCL 5 MG TABLET PO SCH (20:05)
[2018-06-17] MEDS: ATORVASTATIN 10 MG TABLET PO SCH (20:06)
[2018-06-18] MEDS: PANTOPRAZOLE SODIUM 40 MG TABLET.DR PO SCH (06:17)
[2018-06-18 07:30] VITALS: BP 112/63
[2018-06-18] MEDS: METFORMIN HCL 500 MG TABLET PO SCH ×3 (07:45→16:32)
[2018-06-18] MEDS: DOCUSATE SODIUM 100 MG CAPSULE PO SCH ×2 (08:00→16:33)
[2018-06-18] MEDS: QUETIAPINE FUMARATE 25 MG TABLET PO SCH ×2 (08:00→20:07)
[2018-06-18] MEDS: CHOLECALCIFEROL 1,000 UNIT TABLET PO SCH (08:00)
[2018-06-18] MEDS: SENNOSIDES 1 TABLET PO SCH (08:00)
[2018-06-18] MEDS: DIVALPROEX SPRINKLE 125 MG CAP.SPRINK PO SCH ×2 (08:00→16:33)
--- NOTE | 2018-06-18 14:33 | NUR ---
WOUND CARE CONSULT: PT PRESENTS WITH RT BUTTOCK INCONTINENCE ASSOCIATED SKIN DAMAGE. RECOMMENDATIONS MADE FOR SKIN CARE AND PROTECTION. DISCUSSED WITH NURSING STAFF. WILL SEE PRN. GARCIA IN AGREEMENT WITH PLAN OF CARE. Addendum: 06/18/18 at 1434 by LUIS ANTONIO VASQUEZ RN Amended: Links added.
[2018-06-18 16:00] VITALS: BP 110/54
--- NOTE | 2018-06-18 17:31 | NUR ---
GPS: RECEIVED PATIENT AOX3-4, REMAINS ISOLATIVE AND WITHDRAWN, PATIENT DENIES PAIN COMPLIANT WITH MEDICATION, PATIENT FIXATED ON MAKING EQUATION , SEEN BY THE WOUND NURSE WITH ORDERS MADE , PATIENT TRANSFERRED TO ROOM 137A, WILL CONTINUE MONITOR
[2018-06-18 20:00] VITALS: BP 113/56
[2018-06-18] MEDS: ATORVASTATIN 10 MG TABLET PO SCH (20:07)
[2018-06-18] MEDS: BENAZEPRIL HCL 5 MG TABLET PO SCH (20:07)
--- NOTE | 2018-06-18 23:21 | NUR ---
received to care, lying in bed, isolative, but pleasant upon approach. compliant with medications, snacks, and staff direction. as of 2200, he appears to be asleep. no dsitress noted. will continue to monitor closely.
[2018-06-19] MEDS: PANTOPRAZOLE SODIUM 40 MG TABLET.DR PO SCH (06:59)
--- NOTE | 2018-06-19 07:00 | NUR ---
slept 7 hours
[2018-06-19 07:30] VITALS: BP 93/56
[2018-06-19] MEDS: CHOLECALCIFEROL 1,000 UNIT TABLET PO SCH (09:00)
[2018-06-19] MEDS: QUETIAPINE FUMARATE 25 MG TABLET PO SCH ×2 (09:00→21:14)
[2018-06-19] MEDS: METFORMIN HCL 500 MG TABLET PO SCH ×3 (09:00→17:47)
[2018-06-19] MEDS: SENNOSIDES 1 TABLET PO SCH (09:00)
[2018-06-19] MEDS: DIVALPROEX SPRINKLE 125 MG CAP.SPRINK PO SCH ×2 (09:00→17:47)
[2018-06-19] MEDS: DOCUSATE SODIUM 100 MG CAPSULE PO SCH ×2 (09:00→17:47)
[2018-06-19 16:01] VITALS: BP 115/59
[2018-06-19 20:00] VITALS: BP 114/60
[2018-06-19] MEDS: ATORVASTATIN 10 MG TABLET PO SCH (21:14)
[2018-06-19] MEDS: BENAZEPRIL HCL 5 MG TABLET PO SCH (21:15)
[2018-06-20] MEDS: PANTOPRAZOLE SODIUM 40 MG TABLET.DR PO SCH (06:22)
--- NOTE | 2018-06-20 06:45 | NUR ---
pt slept 7.5 hours, total. assisted with am care, and shower. curently sitting up inbed, drawing pictures. no distress noted.
[2018-06-20 07:30] VITALS: BP 116/58
[2018-06-20] MEDS: DIVALPROEX SPRINKLE 125 MG CAP.SPRINK PO SCH ×2 (08:39→16:52)
[2018-06-20] MEDS: DOCUSATE SODIUM 100 MG CAPSULE PO SCH ×2 (08:39→16:52)
[2018-06-20] MEDS: CHOLECALCIFEROL 1,000 UNIT TABLET PO SCH (08:39)
[2018-06-20] MEDS: METFORMIN HCL 500 MG TABLET PO SCH ×3 (08:39→16:52)
[2018-06-20] MEDS: QUETIAPINE FUMARATE 25 MG TABLET PO SCH ×2 (08:40→20:56)
[2018-06-20] MEDS: SENNOSIDES 1 TABLET PO SCH (08:40)
[2018-06-20 16:00] VITALS: BP 115/53
[2018-06-20 20:18] VITALS: BP 127/61
[2018-06-20] MEDS: ATORVASTATIN 10 MG TABLET PO SCH (20:56)
[2018-06-20] MEDS: BENAZEPRIL HCL 5 MG TABLET PO SCH (20:56)
--- NOTE | 2018-06-20 22:00 | NUR ---
received to care, lying in bed, isolative, but pleasant upon approach. compliant with medications, snacks, and staff direction. as of 2200, he appears to be asleep. no distress noted. will continue to monitor closely.
--- NOTE | 2018-06-21 06:00 | NUR ---
slept 5 hours
[2018-06-21 07:30] VITALS: BP 103/50
[2018-06-21] MEDS: CHOLECALCIFEROL 1,000 UNIT TABLET PO SCH (08:38)
[2018-06-21] MEDS: QUETIAPINE FUMARATE 25 MG TABLET PO SCH ×2 (08:39→20:53)
[2018-06-21] MEDS: METFORMIN HCL 500 MG TABLET PO SCH ×3 (08:39→16:54)
[2018-06-21] MEDS: SENNOSIDES 1 TABLET PO SCH (08:39)
[2018-06-21] MEDS: PANTOPRAZOLE SODIUM 40 MG TABLET.DR PO SCH (08:39)
[2018-06-21] MEDS: DOCUSATE SODIUM 100 MG CAPSULE PO SCH ×2 (08:39→16:54)
[2018-06-21] MEDS: DIVALPROEX SPRINKLE 125 MG CAP.SPRINK PO SCH ×2 (08:39→16:54)
[2018-06-21 15:56] VITALS: BP 119/60
[2018-06-21] MEDS: MAGNESIUM HYDROXIDE 30 ML LIQUID UDC PO PRN (16:36)
--- NOTE | 2018-06-21 16:55 | NUR ---
Gps/Tool And Die Maker/Designer- Coplained of being constipated, inspite of routine stool softener ans senokot w/c was administered routinely as ordered, fluids offered encouraged, claimed he is not drinking enough water/liquids. MOM 30 ml was administered, with 120 ml of warm prune juice. Bowel program.
[2018-06-21] MEDS: Z GUARD REMEDY PASTE 57 GM TUBE TOP PRN (17:57)
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
[2018-06-21 20:47] VITALS: BP 116/61
[2018-06-21] MEDS: ATORVASTATIN 10 MG TABLET PO SCH (20:51)
[2018-06-21] MEDS: BENAZEPRIL HCL 5 MG TABLET PO SCH (21:00)
[2018-06-22] MEDS: PANTOPRAZOLE SODIUM 40 MG TABLET.DR PO SCH (06:42)
[2018-06-22 07:30] VITALS: BP 93/51
[2018-06-22] MEDS: DIVALPROEX SPRINKLE 125 MG CAP.SPRINK PO SCH ×2 (09:22→17:14)
[2018-06-22] MEDS: CHOLECALCIFEROL 1,000 UNIT TABLET PO SCH (09:22)
[2018-06-22] MEDS: METFORMIN HCL 500 MG TABLET PO SCH ×3 (09:23→17:14)
[2018-06-22] MEDS: DOCUSATE SODIUM 100 MG CAPSULE PO SCH ×2 (09:23→17:14)
[2018-06-22] MEDS: QUETIAPINE FUMARATE 25 MG TABLET PO SCH ×2 (09:23→20:35)
[2018-06-22] MEDS: SENNOSIDES 1 TABLET PO SCH (09:24)
[2018-06-22 16:00] VITALS: BP 109/55
--- NOTE | 2018-06-22 18:23 | NUR ---
patient has been visible on unit up in wheelchair with minimum assist c/o constipation, medicated with routine meds one prn mom 30cc for help with stool continue to monitor bowel movement
[2018-06-22] MEDS: MAGNESIUM HYDROXIDE 30 ML LIQUID UDC PO PRN (18:47)
[2018-06-22 20:26] VITALS: BP 141/73
[2018-06-22] MEDS: ATORVASTATIN 10 MG TABLET PO SCH (20:33)
[2018-06-22] MEDS: BENAZEPRIL HCL 5 MG TABLET PO SCH (20:35)
[2018-06-23] MEDS: Z GUARD REMEDY PASTE 57 GM TUBE TOP PRN (06:11)
[2018-06-23] MEDS: PANTOPRAZOLE SODIUM 40 MG TABLET.DR PO SCH (06:12)
[2018-06-23 07:30] VITALS: BP 122/62
[2018-06-23] MEDS: CHOLECALCIFEROL 1,000 UNIT TABLET PO SCH (08:20)
[2018-06-23] MEDS: DIVALPROEX SPRINKLE 125 MG CAP.SPRINK PO SCH (08:20)
[2018-06-23] MEDS: DOCUSATE SODIUM 100 MG CAPSULE PO SCH (08:20)
[2018-06-23] MEDS: METFORMIN HCL 500 MG TABLET PO SCH ×2 (08:20→11:06)
[2018-06-23] MEDS: SENNOSIDES 1 TABLET PO SCH (08:21)
[2018-06-23] MEDS: QUETIAPINE FUMARATE 25 MG TABLET PO SCH (08:21)
--- NOTE | 2018-06-23 10:10 | NUR ---
DC NOTE: Patient will be discharged today back to [facility] [[address], [place] [address]; ] and transportation will be provided by ambulance at 12:00pm. Please arrange ambulance transportation for this patient. Patient is AxOx2, denies SI/HI, is able to plan for self-care, and is agreeable with discharge plan. livestock farm workers has called and informed patient KEVIN, Tani Rose [[phone]], about discharge plan and he is aware and agreeable with plan. Patient will follow-up with Dr. Lott (supervisor silvering department) and Dr. Templeton (psychiatrist) at the facility. Patient has been provided with a mental health resources including [facility] Crisis Line [ ], Kalee Leos [ ], and National Suicide Prevention Lifeline [ ].
--- NOTE | 2018-06-23 14:07 | NUR ---
Patient discharged back to [facility] , Patient is AxOx2, denies SI/HI, is able to plan for self-care. All personal belonging given to pt.Patient will follow-up with Dr. Lott (it field technician) and Dr. Templeton (psychiatrist) at the facility.
== END 2018-06-23 14:30 | DRG 885 ==
LOC: ER 22:44 → GPS 06-15 00:18
PROVIDERS: ADMIT Psychiatry & Neurology Psychiatry; ATTEND Registered Nurse
DX: F29 Unspecified psychosis not due to a substance or known physiological condition (principal); F03.91 Unspecified dementia, unspecified severity, with behavioral disturbance; J98.11 Atelectasis; E78.5 Hyperlipidemia, unspecified; M75.101 Unspecified rotator cuff tear or rupture of right shoulder, not specified as traumatic; E11.9 Type 2 diabetes mellitus without complications; Z79.84 Long term (current) use of oral hypoglycemic drugs; I10 Essential (primary) hypertension; K21.9 Gastro-esophageal reflux disease without esophagitis; E55.9 Vitamin D deficiency, unspecified; F41.8 Other specified anxiety disorders; Z66 Do not resuscitate
CPT/HCPCS: 36415; 71045; 73030; 80164; 80307; 84443; 85025; 93005; 97110; 97116; 97530; A4663; G0480